=== PATIENT | male | born 1980 | race African-American/Black ===

== ENCOUNTER 2018-06-28 04:10 | Emergency (ER) | payer OTHER ==
[~2018-06-28] VITALS: Ht 185.4 cm; Wt 122.0 kg
[2018-06-28 04:13] VITALS: BP 178/113
== END 2018-06-28 10:54 | disposition left against medical advice (07) ==
LOC: ER 04:10 → EDBD 04:10 → ER 10:54
DX: F41.9 Anxiety disorder, unspecified (principal); I10 Essential (primary) hypertension; Z91.14 Patient's other noncompliance with medication regimen
CPT/HCPCS: 93005; 99283